=== PATIENT | female | born 1970 | race Caucasian/White ===

== ENCOUNTER 2017-03-26 12:14 | Emergency (ER) | payer OTHER ==
[~2017-03-26] VITALS: Ht 160 cm; Wt 54.1 kg
[~2017-03-26 12:14] MED LIST: METF1000 PO
[2017-03-26 12:25] VITALS: BP 151/98
[2017-03-26 13:00] LABS: BASOPHILS # (AUTO) 0.2 K/uL (0.00-0.22); BASOPHILS % (AUTO) 2.5 % (0.0-2.0); EOSINOPHILS # (AUTO) 0.2 K/uL (0-0.4); EOSINOPHILS % (AUTO) 3.4 % (0.0-4.0); HEMOGLOBIN 13.2 g/dL (12.0-16.0); LYMPHOCYTES # (AUTO) 2.1 K/uL (2.5-16.5); LYMPHOCYTES % (AUTO) 29.5 % (20.5-51.1); MEAN CORPUSCULAR HEMOGLOBIN 28 pg (27-31); MEAN CORPUSCULAR HGB CONC 32 g/dL (33-37); MEAN CORPUSCULAR VOLUME 86 fL (80-94); MONOCYTES # (AUTO) 0.4 K/uL (0.8-1.0); NEUTROPHILS # (AUTO) 4.3 K/uL (1.8-7.7); NEUTROPHILS % (AUTO) 58.6 % (42.2-75.2); PLATELET COUNT (AUTO) 287 K/uL (140-450); RED BLOOD CELL COUNT(AUTO) 4.78 MIL/uL (4.20-5.40); RED CELL DISTRIBUTION WIDTH 11.7 % (11.6-13.7); WHITE BLOOD COUNT (AUTO) 7.2 K/uL (4.8-10.8)
[2017-03-26 13:02] LABS: APPEARANCE,URINE CLEAR (CLEAR); BILIRUBIN,URINE NEGATIVE (NEGATIVE); BLOOD, URINE 1+ (NEGATIVE); COLOR,URINE YELLOW (YELLOW); LEUKOCYTE ESTERASE ,URINE NEGATIVE (NEGATIVE); NITRITE, URINE NEGATIVE (NEGATIVE); PH,URINE 6.5 (5.0-9.0); UGLUCOSE 3+ (NEGATIVE)
[2017-03-26 13:29] LABS: RBC,URINE 0-5 (RARE) /HPF (0-5); WBC,URINE 0-5 (RARE) /HPF (0-5)
[2017-03-26] MEDS ORDERED: ONDANSETRON 4 MG ODT PO ONE (14:15)
[2017-03-26] MEDS ORDERED: MORPHINE SULFATE 5 MG/ML VIAL IM ONE ×2 (14:15→17:25)
[2017-03-26] MEDS ORDERED: INSULIN HUMAN REGULAR 100 UNITS/ML 10 ML VIAL IVP ONE (15:50)
[2017-03-26] MEDS ORDERED: NACL 0.9% 1,000 ML IV ONE (15:50)
[2017-03-26 16:03] LABS: ANION GAP 10.4 (8-16); CARBON DIOXIDE 30.4 mmol/L (21-32); POTASSIUM 3.8 mmol/L (3.5-5.1)
[2017-03-26 16:04] LABS: CREATININE 0.8 mg/dL (0.6-1.3); TOTAL BILIRUBIN 0.4 mg/dL (0.0-1.0)
[2017-03-26 16:05] LABS: ALBUMIN 3.6 g/dL (3.4-5.0)
[2017-03-26] MEDS ORDERED: ONDANSETRON 4 MG/2 ML VIAL ONE (17:45)
[2017-03-26 17:57] VITALS: BP 114/55
== END 2017-03-26 17:57 | disposition home or self-care (01) ==
LOC: MED 12:14
DX: M54.5 Low back pain (principal); R10.9 Unspecified abdominal pain; J45.909 Unspecified asthma, uncomplicated; E11.9 Type 2 diabetes mellitus without complications; Z79.899 Other long term (current) drug therapy
CPT/HCPCS: 36415; 80053; 81001; 82948; 83690; 84703; 85025; 96361; 96372; 96374; 99285; J1815; J2270; J2405; J7030; S0119

== ENCOUNTER 2017-08-15 10:46 | Emergency (ER) | payer OTHER ==
[~2017-08-15] VITALS: Ht 162.6 cm; Wt 51.5 kg
[2017-08-15 10:53] VITALS: BP 161/107
[2017-08-15] MEDS ORDERED: NACL 0.9% 1,000 ML IV SCH (12:44)
[2017-08-15 13:13] LABS: BASOPHILS # (AUTO) 0.4 K/uL (0.00-0.22); BASOPHILS % (AUTO) 4.1 % (0.0-2.0); EOSINOPHILS # (AUTO) 0.4 K/uL (0-0.4); EOSINOPHILS % (AUTO) 4.8 % (0.0-4.0); HEMATOCRIT 52.9 % (36-48); HEMOGLOBIN 17.1 g/dL (12.0-16.0); LYMPHOCYTES # (AUTO) 1.9 K/uL (2.5-16.5); MEAN CORPUSCULAR HEMOGLOBIN 27 pg (27-31); MEAN CORPUSCULAR HGB CONC 32 g/dL (33-37); MEAN CORPUSCULAR VOLUME 82 fL (80-94); MONOCYTES # (AUTO) 0.3 K/uL (0.8-1.0); MONOCYTES % (AUTO) 3.2 % (1.7-9.3); NEUTROPHILS # (AUTO) 5.7 K/uL (1.8-7.7); NEUTROPHILS % (AUTO) 65.9 % (42.2-75.2); PLATELET COUNT (AUTO) 193 K/uL (140-450); RED BLOOD CELL COUNT(AUTO) 6.46 MIL/uL (4.20-5.40); RED CELL DISTRIBUTION WIDTH 12.6 % (11.6-13.7); WHITE BLOOD COUNT (AUTO) 8.7 K/uL (4.8-10.8)
[2017-08-15] MEDS ORDERED: ENALAPRILAT 2.5 MG/2 ML VIAL IVP ONE (13:30)
[2017-08-15 13:52] LABS: ALBUMIN 3.4 g/dL (3.4-5.0); ANION GAP 12.1 (8-16); CARBON DIOXIDE 29.8 mmol/L (21-32); CREATININE 0.7 mg/dL (0.6-1.3); POTASSIUM 3.9 mmol/L (3.5-5.1); TOTAL BILIRUBIN 0.3 mg/dL (0.0-1.0)
--- NOTE | 2017-08-15 14:15 | NUR ---
PT AMBULATED TO RESTROOM WITH STEADY GAIT
--- NOTE | 2017-08-15 14:31 | NUR ---
NOTIFIED OF BS
[2017-08-15 15:15] VITALS: BP 161/105
--- NOTE | 2017-08-15 15:16 | NUR ---
Patient to be transferred to [facility]. Is being transferred due to . Receiving facility has accepting physician and available space. ER physician has signed transfer form. Patient or responsible constitution party has agreed to transfer and signed form. Patient belongings inventoried and will be sent with patient. Copy of nursing notes, lab reports, EKG, Physicians Orders and X-rays to be sent with patient. Report called to at receiving facility. PT STABLE TO TRANSFER IN PRIVATE AUTO REQUESTED BY PT .
== END 2017-08-15 15:16 | disposition short-term general hospital (02) ==
LOC: MED 10:46
DX: M21.371 Foot drop, right foot (principal); E11.65 Type 2 diabetes mellitus with hyperglycemia; J45.909 Unspecified asthma, uncomplicated; E11.9 Type 2 diabetes mellitus without complications
CPT/HCPCS: 36415; 80053; 81025; 82948; 85025; 96361; 96374; 99285; J3490; J7030

== ENCOUNTER 2018-09-18 17:14 | Emergency (ER) | payer OTHER ==
[~2018-09-18] VITALS: Ht 157.5 cm; Wt 51.7 kg
[2018-09-18 17:36] VITALS: BP 142/113
--- NOTE | 2018-09-18 17:56 | NUR ---
PT AMBULATED TO ER BED 10
--- NOTE | 2018-09-18 18:10 | NUR ---
PATIENT REFERRED FROM PCP BLOOD SUGAR READING >600; 20UNITS OF INSULIN GIVEN SQ AT PCP OFFICE. CURRENTLY BS 467MG/DL. DENIES ANY SYMPTOMS OF HYPERGLYCEMIA, DENIES N/V/D, DENIES PAIN. HX DM, HTN. SKIN IS PINK/WARM/DRY; AAOX4 WITH EVEN AND STEADY GAIT; LUNGS CLEAR BL; HR EVEN AND REGULAR; PT DENIES ANY FEVER, CP, SOB, OR COUGH AT THIS TIME; PATIENT POSITIONED FOR COMFORT; HOB ELEVATED; BEDRAILS UP X2; BED DOWN. ER MD MADE AWARE OF PT STATUS.
[2018-09-18] MEDS ORDERED: NACL 0.9% 1,000 ML IV ONE (18:40)
[2018-09-18 19:10] LABS: BILIRUBIN,URINE NEGATIVE (NEGATIVE); BLOOD, URINE TRACE-L (NEGATIVE); COLOR,URINE YELLOW (YELLOW); LEUKOCYTE ESTERASE ,URINE NEGATIVE (NEGATIVE); NITRITE, URINE POSITIVE (NEGATIVE); PH,URINE 6.5 (5.0-9.0); UGLUCOSE 3+ (NEGATIVE)
[2018-09-18 19:12] LABS: BASOPHILS # (AUTO) 0.2 K/uL (0.00-0.22); BASOPHILS % (AUTO) 1.5 % (0.0-2.0); EOSINOPHILS # (AUTO) 0.2 K/uL (0-0.4); EOSINOPHILS % (AUTO) 2.2 % (0.0-4.0); HEMATOCRIT 27.3 % (36-48); HEMOGLOBIN 7.8 g/dL (12.0-16.0); LYMPHOCYTES # (AUTO) 2.4 K/uL (2.5-16.5); LYMPHOCYTES % (AUTO) 20.9 % (20.5-51.1); MEAN CORPUSCULAR HEMOGLOBIN 17 pg (27-31); MEAN CORPUSCULAR HGB CONC 29 g/dL (33-37); MEAN CORPUSCULAR VOLUME 60.2 fL (80-94); MONOCYTES # (AUTO) 0.8 K/uL (0.8-1.0); MONOCYTES % (AUTO) 7.5 % (1.7-9.3); NEUTROPHILS # (AUTO) 7.7 K/uL (1.8-7.7); NEUTROPHILS % (AUTO) 67.9 % (42.2-75.2); PLATELET COUNT (AUTO) 447 K/uL (140-450); RED BLOOD CELL COUNT(AUTO) 4.54 MIL/uL (4.20-5.40); RED CELL DISTRIBUTION WIDTH 17.7 % (11.6-13.7); WHITE BLOOD COUNT (AUTO) 11.3 K/uL (4.8-10.8)
[2018-09-18 19:22] LABS: APPEARANCE,URINE HAZY (CLEAR)
[2018-09-18 19:23] LABS: ANION GAP 12.8 (8-16); CARBON DIOXIDE 26.7 mmol/L (21-32); CREATININE 0.8 mg/dL (0.6-1.3); POTASSIUM 3.5 mmol/L (3.5-5.1); TOTAL BILIRUBIN 0.2 mg/dL (0.0-1.0)
[2018-09-18] MEDS ORDERED: LEVOFLOXACIN 500 MG/D5W PREMIX 100 ML IV ONE (19:55)
[2018-09-18] MEDS ORDERED: INSULIN REGULAR, HUMAN 100 UNIT/ML VIAL IVP ONE (19:55)
[2018-09-18] MEDS ORDERED: KETOROLAC 30 MG/ML VIAL IVP ONE (19:55)
--- NOTE | 2018-09-18 20:19 | NUR ---
LAB AT BEDSIDE TO COLLECT BLOOD CULTURES.
--- NOTE | 2018-09-18 22:05 | NUR ---
Patient discharged with v/s stable. Written and verbal after care instructions given and explained. Patient alert, oriented and verbalized understanding of instructions. Ambulatory with steady gait. All questions addressed prior to discharge. ID band removed. Patient advised to follow up with PMD. Rx of Bactrim DS, Iron, and Motrin given. Patient educated on indication of medication including possible reaction and side effects. Opportunity to ask questions provided and answered.
[2018-09-18 22:11] VITALS: BP 153/92
== END 2018-09-18 22:05 | disposition home or self-care (01) ==
LOC: MED 17:14
DX: E11.65 Type 2 diabetes mellitus with hyperglycemia (principal); N39.0 Urinary tract infection, site not specified; D64.9 Anemia, unspecified; R05 Cough; I10 Essential (primary) hypertension; J45.909 Unspecified asthma, uncomplicated; Z79.84 Long term (current) use of oral hypoglycemic drugs
CPT/HCPCS: 36415; 80053; 81001; 82948; 83540; 84484; 85025; 87040; 87086; 93005; 96361; 96365; 96372; 96375; 99284; J1815; J1885; J1956; 87186

== ENCOUNTER 2019-02-12 17:30 | Observation (INO) | payer OTHER ==
[~2019-02-12] VITALS: Ht 162.6 cm; Wt 52.6 kg
[2019-02-12 17:43] VITALS: BP 180/101
[2019-02-12] MEDS ORDERED: NACL 0.9% 1,000 ML IV SCH (17:52)
--- NOTE | 2019-02-12 18:00 | NUR ---
PT C/O LOW HGB/HCT. SENT HERE BY DR CARLTON. DENIES N/V/D; SKIN IS PALE/WARM/DRY; AAOX4 WITH EVEN AND STEADY GAIT; LUNGS CLEAR BL; HR EVEN WITH TACHYCARDIA; PT DENIES ANY FEVER, CP, SOB, OR COUGH AT THIS TIME; PATIENT STATES PAIN OF 0/10 AT THIS TIME; VSS; PATIENT POSITIONED FOR COMFORT; HOB ELEVATED; BEDRAILS UP X1; BED DOWN. ER MD MADE AWARE OF PT STATUS.
[2019-02-12 18:04] LABS: BASOPHILS # (AUTO) 0.1 K/uL (0.00-0.22); BASOPHILS % (AUTO) 0.7 % (0.0-2.0); EOSINOPHILS # (AUTO) 0.1 K/uL (0-0.4); EOSINOPHILS % (AUTO) 0.5 % (0.0-4.0); HEMATOCRIT 23.9 % (36-48); LYMPHOCYTES # (AUTO) 2.6 K/uL (2.5-16.5); LYMPHOCYTES % (AUTO) 18.3 % (20.5-51.1); MEAN CORPUSCULAR HEMOGLOBIN 17 pg (27-31); MEAN CORPUSCULAR HGB CONC 28 g/dL (33-37); MONOCYTES # (AUTO) 0.8 K/uL (0.8-1.0); MONOCYTES % (AUTO) 5.8 % (1.7-9.3); NEUTROPHILS # (AUTO) 10.5 K/uL (1.8-7.7); NEUTROPHILS % (AUTO) 74.7 % (42.2-75.2); PLATELET COUNT (AUTO) 436 K/uL (140-450); RED BLOOD CELL COUNT(AUTO) 4.05 MIL/uL (4.20-5.40); RED CELL DISTRIBUTION WIDTH 20.4 % (11.6-13.7)
[2019-02-12 18:07] LABS: HEMOGLOBIN 6.7 g/dL (12.0-16.0)
[2019-02-12 18:21] LABS: CARBON DIOXIDE 28.5 mmol/L (21-32); CREATININE 0.7 mg/dL (0.6-1.3); POTASSIUM 3.5 mmol/L (3.5-5.1)
[2019-02-12 18:26] LABS: PROTHROMBIN TIME 9.5 secs (10.8-13.4)
[2019-02-12 18:27] LABS: ALBUMIN 2.8 g/dL (3.4-5.0); TOTAL BILIRUBIN 0.2 mg/dL (0.0-1.0)
[2019-02-12] MEDS ORDERED: guaiFENesin DM 200/20 MG-10 ML 10 ML UDC PO PRN (21:25)
[2019-02-12] MEDS ORDERED: ONDANSETRON 4 MG/2 ML VIAL IVP PRN (21:25)
[2019-02-12] MEDS ORDERED: ACETAMINOPHEN 325 MG TAB PO PRN (21:25)
[2019-02-12] MEDS ORDERED: BISACODYL 10 MG SUPP RC PRN (21:25)
[2019-02-12] MEDS ORDERED: MAGNESIUM OXIDE 400 MG TAB PO PRN (21:25)
[2019-02-12] MEDS ORDERED: diphenhydrAMINE 50 MG/ML VIAL IVP PRN (21:25)
[2019-02-12] MEDS ORDERED: HYDROcodone/APAP 5/325 MG 1 TAB TAB PO PRN ×2 (21:25)
[2019-02-12] MEDS ORDERED: ALUMINUM HYD/MAG/SIMETHICONE 30 ML UDC PO PRN (21:25)
[2019-02-12] MEDS ORDERED: IPRATROPIUM 0.02% 0.5 MG/2.5 ML NEBU INH PRN (21:25)
[2019-02-12] MEDS ORDERED: ACETAMINOPHEN 650 MG SUPP RC PRN (21:25)
[2019-02-12] MEDS ORDERED: POTASSIUM CHLORIDE 40 MEQ, LIDOCAINE 1% 25 MG in NACL 0.9% 250 ML IV PRN (21:25)
[2019-02-12] MEDS ORDERED: SODIUM PHOSPHATE 118 ML ENEM RC PRN (21:25)
[2019-02-12] MEDS ORDERED: MORPHINE SULFATE 2 MG/ML SYR IVP PRN (21:25)
[2019-02-12] MEDS ORDERED: ALBUTEROL 0.083% 2.5 MG/3 ML NEBU INH PRN (21:25)
[2019-02-12] MEDS ORDERED: ZOLPIDEM 5 MG TAB PO PRN (21:25)
[2019-02-12] MEDS ORDERED: DOCUSATE SODIUM 250 MG GELCAP PO PRN (21:25)
[2019-02-12] MEDS ORDERED: POTASSIUM CHLORIDE 10 MEQ TABER PO PRN (21:25)
[2019-02-12] MEDS ORDERED: LORazepam 2 MG/ML VIAL IVP PRN (21:25)
[2019-02-12] MEDS ORDERED: MAG SULF 2000 MG/WATER PREMIX 50 ML IV PRN (21:25)
[2019-02-12 21:29] VITALS: BP 178/99
--- NOTE | 2019-02-12 21:29 | NUR ---
RECEIVED PT FROM ER VIA WHEELCHAIR PT IS PALE AAOX4 AMBULATORY DENIES ANY PAIN OR DISCOMFORT, IV ON RT AC GAUGE # 20 PATENT SKIN INTACT PT ON RT FOOT HAS BIG TOE AMPUTEE PT IS ORIENTED TO THE FLOOR CALL LIGHT WITHIN REACH
--- NOTE | 2019-02-12 22:30 | NUR ---
PT IS EATING WELL GOOD APPETITE NOT DISTRESS NOTED
[2019-02-12] MEDS: cloNIDine 0.1 MG TAB PO PRN (22:52)
[2019-02-13] VITALS: BP 159/97
--- NOTE | 2019-02-13 00:45 | NUR ---
AT 0045 FIRST UNITS OF PRBC STARTED PT ON CLOSE MONITORINE NOT DISTRESS NOTED
--- NOTE | 2019-02-13 02:00 | NUR ---
PT ON BLOOD TRANSFUSION DENIES ANY PAIN , BP WILL BE MONITORING
[2019-02-13 03:30] VITALS: BP 187/110
[2019-02-13] MEDS ORDERED: hydrALAZINE 20 MG/ML VIAL IVP SCH (03:30)
--- NOTE | 2019-02-13 03:30 | NUR ---
DR MATHIAS WAS NOTIFY HIGH BP 187 /110 AND ORDERS TO FOLLOW ON CLOSE MONITORING
[2019-02-13] MEDS ORDERED: hydrALAZINE 20 MG/ML VIAL ONE (03:46)
--- NOTE | 2019-02-13 03:55 | NUR ---
AT 0355 END FIRST UNITS PRBC PT DENIES ANY PAIN OR DISCOMFORT ON CLOSE MONITORING FOR HITGH BP AFTER HYDRALAZINA GIVEN BP 124/76
[2019-02-13 04:00] VITALS: BP 124/76
--- NOTE | 2019-02-13 05:05 | NUR ---
AT 0505 STARTED SECOND UNITS OF PRBC PT RESTING DENIES ANY PAIN OR DISCOMFORT
--- NOTE | 2019-02-13 07:30 | NUR ---
Received bedside report from pm nurse Trudy. Pt resting in bed, verbally responsive, respirations even & nonlabored, no c/o discomfort. Right AC IV intact with ongoing blood transfusion @ 100ml/hr. Call light within reach.
[2019-02-13 07:50] VITALS: BP 160/94
--- NOTE | 2019-02-13 08:41 | NUR ---
PATIENT HAS BEEN SCREENED AND CATEGORIZED LOW NUTRITION RISK. PATIENT WILL BE SEEN WITHIN 7 DAYS OF ADMISSION. 02/19/[address]
--- NOTE | 2019-02-13 10:15 | NUR ---
2nd unit PRBC held d/t elevated BP. Will administer catapress per prn order. Pt resting in bed, denies any discomfort/headache/nausea. Right AC IV intact with NS @ 10ml/hr TKVO. Call light within reach.
[2019-02-13] MEDS: metFORMIN 500 MG TAB PO SCH ×2 (10:27→17:59)
[2019-02-13] MEDS: cloNIDine 0.1 MG TAB PO PRN (10:28)
--- NOTE | 2019-02-13 11:59 | NUR ---
Dr Montaño called and paged. Dr. Montaño called back and informed about persistent elevated BP post Catapress. Orders received and read back to ensure accuracy. Will administer new ordered medications and continue to monitor Bp and changes in condition.
[2019-02-13 12:00] VITALS: BP 188/115
[2019-02-13] MEDS ORDERED: FUROSEMIDE 40 MG/4 ML VIAL IVP SCH (12:06)
[2019-02-13] MEDS: hydrALAZINE 25 MG TAB PO PRN ×2 (12:44→20:13)
--- NOTE | 2019-02-13 14:13 | NUR ---
Dr Montaño was paged in regard to patient's persistent HTN, despite administering newly ordered lasix and hydralazine. Dr. Montaño was informed of the most recent BP. When asked if he wanted to proceed with the third unit of PRBC, Dr. Montaño stated that we were ok to proceed with the transfusion because the patient was asymptomatic to the HTN.
--- NOTE | 2019-02-13 14:42 | NUR ---
PATIENT WAS GIVEN NUTRITION EDUCATION FOR IRON DEFICIENCY ANEMIA. MAL[address]IE [address]
--- NOTE | 2019-02-13 15:15 | NUR ---
1unit PRBC transfusion initiated at this time. Pt resting in bed, aaox4, no c/o discomfort, no signs of distress. RN at bedside for continuos monitoring for 1st 15min of transfusion.
[2019-02-13 15:45] VITALS: BP 160/100
[2019-02-13] MEDS ORDERED: FERR324T11 PO (16:15)
[2019-02-13] MEDS ORDERED: AMLO5TAB PO (16:15)
--- NOTE | 2019-02-13 18:00 | NUR ---
PRBC completed at this time. Pt disconnected from IV lines, right AC IV flushed with 10ml NS. No transfusion reactions noted, pt denies any pain/discomfort, respirations even & nonlabored. Call light within reach. Lab notified of transfusion completion, per tin can laborer: will draw CBC 2hr post-transfusion.
--- NOTE | 2019-02-13 19:19 | NUR ---
Pt endorsed to night FIORDALIZA Perez. Pt was in restroom, and prior to entering the restroom inquired about the time of discharge. Night nurse informed that new blood work has been ordered and must be completed prior to discharge. Pt shows no signs of acute distress at this time ans she was able to ambulate to the restroom with a steady gait/
--- NOTE | 2019-02-13 19:20 | NUR ---
REPORT RECEIVED FROM AM NURSE AT BEDSIDE. PT IN STABLE CONDITION. AAOX4. INTRODUCED SELF TO PT. BOARD UPDATED. NO COMPLAINTS OF PAIN. NO SOB. AFEBRILE. PT IS AMBULATORY. PT RECEIVED 3 UNITS OF BLOOD ALL COMPLETE. D/C ORDERS AFTER H&H DRAWN TODAY@1999. IV SITE R AC 20G SL PATENT AND INTACT. SKIN WARM, DRY, AND INTACT WITH NO OPEN WOUNDS. BED LOCKED IN LOW POSITION. CALL CLEMENS WITHIN REACH. SAFETY PRECAUTION IN PLACE. ALL NEEDS MET AT THIS TIME.
--- NOTE | 2019-02-13 20:13 | NUR ---
HYDRALAZINE GIVEN FOR BP 163/100. HR 108. WILL REASSESS.
[2019-02-13 20:24] LABS: BASOPHILS # (AUTO) 0.1 K/uL (0.00-0.22); EOSINOPHILS # (AUTO) 0.3 K/uL (0-0.4); EOSINOPHILS % (AUTO) 2.2 % (0.0-4.0); HEMOGLOBIN 12.5 g/dL (12.0-16.0); LYMPHOCYTES # (AUTO) 2.6 K/uL (2.5-16.5); MEAN CORPUSCULAR HEMOGLOBIN 21 pg (27-31); MEAN CORPUSCULAR HGB CONC 31 g/dL (33-37); MONOCYTES % (AUTO) 7.8 % (1.7-9.3); NEUTROPHILS # (AUTO) 8.5 K/uL (1.8-7.7); PLATELET COUNT (AUTO) 372 K/uL (140-450); RED BLOOD CELL COUNT(AUTO) 5.88 MIL/uL (4.20-5.40); RED CELL DISTRIBUTION WIDTH 28.4 % (11.6-13.7); WHITE BLOOD COUNT (AUTO) 12.5 K/uL (4.8-10.8)
--- NOTE | 2019-02-13 20:35 | NUR ---
PT ASKED TO CHECK HER BLOOD SUGAR LEVELS. BS 452. CALLED MD. AWAITING CALL BACK.
[2019-02-13] MEDS ORDERED: INSULIN LISPRO 100 UNITS/ML VIAL SUBQ ONE (20:40)
--- NOTE | 2019-02-13 20:40 | NUR ---
CALLED BACK. NEW ORDERS TO GIVE 16 UNITS OF REGULAR INSULIN AND CHECK BS AGAIN IN 1 HOUR. IF UNDER 400 OK TO D/C WILL REASSESS IN 1 HOUR.
--- NOTE | 2019-02-13 20:44 | NUR ---
16 UNITS OF HUMALOG GIVEN FOR BS 452.
[2019-02-13 20:45] LABS: ANION GAP 11.4 (8-16); CARBON DIOXIDE 28.6 mmol/L (21-32); CREATININE 0.8 mg/dL (0.6-1.3)
--- NOTE | 2019-02-13 21:00 | NUR ---
CRITICAL LAB VALUE OF BS 471. ALREADY GIVEN 16 UNITS OF HUMALOG BEFORE CRITICAL VALUE CALLED IN. LAB WAS DRAWN AT 1999.
--- NOTE | 2019-02-13 22:00 | NUR ---
BP 150/97 REASSESS AFTER HYDRALAZINE. BS 323. OK TO SEND HOME PER MD ORDERS.
--- NOTE | 2019-02-13 22:45 | NUR ---
PATIENT RIDE ARRIVED TO PICK HER UP. PT D/C AT THIS TIME. ARM BANDS D/C. IV ROMOVED. CANNULA INTACT. NO WOUNDS. SKIN INTACT. D/C PAPERWORK SIGNED BY PT.
--- NOTE | 2019-02-14 16:24 | NUR ---
CONTACTED PATIENT'S PCP'S OFFICE DR. RACHEL CARLTON AT [phone], PER [facility] THEY DO NOT PROVIDE APPOINTMENT TO THIRD LIBERTARIAN. THE PATIENT NEED TO CALL THE OFFICE. CONTACTED THE PATIENT AT [phone] AND MADE HER AWARE, ABLE TO VERBALIZE UNDERSTANDING.
== END 2019-02-13 22:47 | disposition home or self-care (01) ==
LOC: MED 17:30 → MTU 20:51
PROVIDERS: ADMIT Internal Medicine Pulmonary Disease; ATTEND Internal Medicine Pulmonary Disease
DX: D64.9 Anemia, unspecified (principal); E11.9 Type 2 diabetes mellitus without complications; I10 Essential (primary) hypertension; J45.909 Unspecified asthma, uncomplicated; N92.1 Excessive and frequent menstruation with irregular cycle
CPT/HCPCS: 36415; 36430; 71045; 76830; 80048; 80053; 82948; 85025; 85610; 85730; 86886; 86900; 86901; 86920; 87081; 94760; 96372; 96374; 96375; 99285; G0378; J0360; J1815; J1940; J7030; P9016; Q0092; 96360

== ENCOUNTER 2019-04-14 13:31 | Emergency (ER) | payer OTHER ==
[~2019-04-14] VITALS: Ht 162.6 cm; Wt 53.5 kg
[~2019-04-14 13:31] MED LIST changes: +AMLO5TAB PO; +FERR324T11 PO
[2019-04-14 13:48] VITALS: BP 192/109
[2019-04-14] MEDS ORDERED: NACL 0.9% 1,000 ML IV ONE ×3 (13:50→17:25)
[2019-04-14 14:50] LABS: BASOPHILS # (AUTO) 0.1 K/uL (0.00-0.22); BASOPHILS % (AUTO) 0.8 % (0.0-2.0); EOSINOPHILS # (AUTO) 0.2 K/uL (0-0.4); EOSINOPHILS % (AUTO) 1.2 % (0.0-4.0); HEMATOCRIT 37.8 % (36-48); LYMPHOCYTES # (AUTO) 1.7 K/uL (2.5-16.5); LYMPHOCYTES % (AUTO) 11.7 % (20.5-51.1); MEAN CORPUSCULAR HEMOGLOBIN 25 pg (27-31); MEAN CORPUSCULAR HGB CONC 32 g/dL (33-37); MEAN CORPUSCULAR VOLUME 78.2 fL (80-94); MONOCYTES # (AUTO) 1.3 K/uL (0.8-1.0); MONOCYTES % (AUTO) 8.5 % (1.7-9.3); NEUTROPHILS # (AUTO) 11.6 K/uL (1.8-7.7); NEUTROPHILS % (AUTO) 77.8 % (42.2-75.2); PLATELET COUNT (AUTO) 309 K/uL (140-450); RED BLOOD CELL COUNT(AUTO) 4.83 MIL/uL (4.20-5.40); RED CELL DISTRIBUTION WIDTH 27.1 % (11.6-13.7); WHITE BLOOD COUNT (AUTO) 14.9 K/uL (4.8-10.8)
[2019-04-14 15:00] LABS: ALBUMIN 2.8 g/dL (3.4-5.0); ANION GAP 12.6 (8-16); CARBON DIOXIDE 27.5 mmol/L (21-32); CREATININE 0.8 mg/dL (0.6-1.3); POTASSIUM 4.1 mmol/L (3.5-5.1); TOTAL BILIRUBIN 0.4 mg/dL (0.0-1.0)
[2019-04-14] MEDS ORDERED: ENALAPRILAT 2.5 MG/2 ML VIAL IVP ONE (15:00)
[2019-04-14] MEDS ORDERED: INSULIN REGULAR, HUMAN 100 UNIT/ML VIAL IV ONE (15:15)
[2019-04-14] MEDS ORDERED: KETOROLAC 30 MG/ML VIAL IVP ONE (15:25)
[2019-04-14] MEDS ORDERED: cefTRIAXone 1,000 MG VIAL ONE (15:36)
[2019-04-14 17:58] VITALS: BP 131/79
== END 2019-04-14 17:59 | disposition home or self-care (01) ==
LOC: MED 13:31
DX: L03.115 Cellulitis of right lower limb (principal); J45.909 Unspecified asthma, uncomplicated; I10 Essential (primary) hypertension; E11.9 Type 2 diabetes mellitus without complications; Z79.84 Long term (current) use of oral hypoglycemic drugs; Z79.899 Other long term (current) drug therapy
CPT/HCPCS: 36415; 80053; 85025; 96365; 96375; 99283; J0696; J1815; J1885; J3490; J7030; J7060

== ENCOUNTER 2019-04-18 07:46 | Inpatient (IN) | payer OTHER ==
[~2019-04-18] VITALS: Ht 162.6 cm; Wt 53.5 kg
[2019-04-18 07:55] VITALS: BP 178/105
--- NOTE | 2019-04-18 08:06 | NUR ---
48 YR OLD F BIB SELF AMBULATE TO BED 9 W/ C/O RIGHT KNOW REDNESS SWOLLEN AND OPEN BLISTERS WITH DRAINAGE X5 DAYS, STATED WAS HERE TREATED WITH PREDNISONE AND KEFLEX, GETTING WORSE. HX OF DM, BS 471 MG/DL NOW.
[2019-04-18] MEDS ORDERED: PIPERACILLIN/TAZOBACTAM 3.375 GM in DEXTROSE 5% 50 ML IV ONE (08:20)
[2019-04-18] MEDS ORDERED: VANCOMYCIN 1,000 MG in DEXTROSE 5% 250 ML IV ONE (08:20)
[2019-04-18] MEDS ORDERED: NACL 0.9% 1,500 ML IV ONE (08:20)
[2019-04-18] MEDS ORDERED: INSULIN REGULAR, HUMAN 100 UNIT/ML VIAL SUBQ ONE (08:35)
[2019-04-18 08:48] LABS: HEMATOCRIT 36.2 % (36-48); HEMOGLOBIN 11.4 g/dL (12.0-16.0); MEAN CORPUSCULAR HEMOGLOBIN 25 pg (27-31); MEAN CORPUSCULAR HGB CONC 32 g/dL (33-37); MEAN CORPUSCULAR VOLUME 78.9 fL (80-94); PLATELET COUNT (AUTO) 387 K/uL (140-450); RED BLOOD CELL COUNT(AUTO) 4.58 MIL/uL (4.20-5.40); RED CELL DISTRIBUTION WIDTH 26.1 % (11.6-13.7); WHITE BLOOD COUNT (AUTO) 16.3 K/uL (4.8-10.8)
[2019-04-18] MEDS ORDERED: PIPERACILLIN/TAZOBACTAM 3.375 GM VIAL IV ONE (08:54)
[2019-04-18] MEDS ORDERED: VANCOMYCIN 1,000 MG VIAL ONE (08:55)
[2019-04-18 09:22] LABS: LYMPHOCYTES % (MANUAL) 7 % (20-46); MONOCYTES % (MANUAL) 2 % (5-12)
[2019-04-18 10:00] LABS: POTASSIUM 4.7 mmol/L (3.5-5.1)
[2019-04-18 10:01] LABS: CARBON DIOXIDE 24.7 mmol/L (21-32)
[2019-04-18 10:01] LABS: BILIRUBIN,URINE NEGATIVE (NEGATIVE); BLOOD, URINE 1+ (NEGATIVE); COLOR,URINE YELLOW (YELLOW); LEUKOCYTE ESTERASE ,URINE NEGATIVE (NEGATIVE); NITRITE, URINE NEGATIVE (NEGATIVE); UGLUCOSE 3+ (NEGATIVE)
[2019-04-18 10:04] LABS: CREATININE 0.8 mg/dL (0.6-1.3); TOTAL BILIRUBIN 0.4 mg/dL (0.0-1.0)
[2019-04-18 10:05] LABS: ALBUMIN 2.6 g/dL (3.4-5.0)
[2019-04-18 10:07] LABS: APPEARANCE,URINE SLIGHTLY HAZY (CLEAR)
[2019-04-18 10:08] LABS: RBC,URINE 0-5 /HPF (0-5); WBC,URINE 0-5 /HPF (0-5); YEAST,URINE Few /HPF (None Seen)
[2019-04-18] MEDS ORDERED: ZOLPIDEM 5 MG TAB PO PRN (10:25)
[2019-04-18] MEDS ORDERED: diphenhydrAMINE 50 MG/ML VIAL IVP PRN (10:25)
[2019-04-18] MEDS ORDERED: ONDANSETRON 4 MG/2 ML VIAL IVP PRN (10:25)
[2019-04-18] MEDS ORDERED: POTASSIUM CHLORIDE 10 MEQ TABER PO PRN (10:25)
[2019-04-18] MEDS ORDERED: DOCUSATE SODIUM 250 MG GELCAP PO PRN (10:25)
[2019-04-18] MEDS ORDERED: DEXTROSE 50% 50 ML SYR IVP PRN (10:25)
[2019-04-18] MEDS ORDERED: LORazepam 2 MG/ML VIAL IVP PRN (10:25)
[2019-04-18] MEDS ORDERED: MAG SULF 2000 MG/WATER PREMIX 50 ML IV PRN (10:25)
[2019-04-18] MEDS ORDERED: IPRATROPIUM 0.02% 0.5 MG/2.5 ML NEBU INH PRN (10:25)
[2019-04-18] MEDS ORDERED: ACETAMINOPHEN 650 MG SUPP RC PRN (10:25)
[2019-04-18] MEDS ORDERED: ALUMINUM HYD/MAG/SIMETHICONE 30 ML UDC PO PRN (10:25)
[2019-04-18] MEDS ORDERED: guaiFENesin DM 200/20 MG-10 ML 10 ML UDC PO PRN (10:25)
[2019-04-18] MEDS ORDERED: HYDROcodone/APAP 5/325 MG 1 TAB TAB PO PRN ×2 (10:25)
[2019-04-18] MEDS ORDERED: MORPHINE SULFATE 2 MG/ML SYR IVP PRN (10:25)
[2019-04-18] MEDS ORDERED: hydrALAZINE 20 MG/ML VIAL IVP ONE (10:25)
[2019-04-18] MEDS ORDERED: MAGNESIUM OXIDE 400 MG TAB PO PRN (10:25)
[2019-04-18] MEDS ORDERED: SODIUM PHOSPHATE 118 ML ENEM RC PRN (10:25)
[2019-04-18] MEDS ORDERED: cloNIDine 0.1 MG TAB PO PRN (10:25)
[2019-04-18] MEDS ORDERED: ALBUTEROL 0.083% 2.5 MG/3 ML NEBU INH PRN (10:25)
[2019-04-18] MEDS ORDERED: ACETAMINOPHEN 325 MG TAB PO PRN (10:25)
[2019-04-18] MEDS ORDERED: BISACODYL 10 MG SUPP RC PRN (10:25)
[2019-04-18] MEDS ORDERED: INSULIN LANTUS 100 UNITS/ML 10 ML VIAL SUBQ SCH (11:30)
[2019-04-18] MEDS: BLOOD GLUCOSE MONITORING 1 DEV DEV FS SCH ×3 (11:30→20:27)
--- NOTE | 2019-04-18 11:30 | NUR ---
Patient will be admitted to care of Dr Cagle. Admited to M/S room 106a. Belongings list completed. Report to FIORDALIZA Jimenez
[2019-04-18 14:46] VITALS: BP 130/80
[2019-04-18] MEDS: CLINDAMYCIN 600 MG in DEXTROSE 5% 50 ML IV SCH ×2 (15:58→20:33)
[2019-04-18] MEDS: INSULIN LISPRO SLIDING SCALE 100 UNITS/ML VIAL SUBQ PRN ×2 (17:36→20:29)
--- NOTE | 2019-04-18 19:00 | NUR ---
RECEIVED PATIENT FROM AM SHIFT NURSEDONNIE FROM REGISTRY. AWAKE, ALERT OR, X 4., BED REST, UNSTEADY GAIT WITH STANDBY ASSIST PT WITH RIGHT LEG CELLULITIS WITH IVF ON RIGHT AC G 20, PATENT AND INTACT, SALINE LOCK. PHOTO NOT TAKEN YET WILL TAKE IT LATER. P PLACED PT IN COMFORTABLE POSITION. FALL RISK PROTOCOL IN PLACE. CALL LIGHT WITHIN REACH
[2019-04-18 20:00] VITALS: BP 122/63
[2019-04-18] MEDS: metFORMIN 500 MG TAB PO SCH (20:33)
--- NOTE | 2019-04-18 22:07 | NUR ---
PHOTO TAKEN ON RIGHT LEG,PT TOLERATED PROCEDURE WELL. ATTACHED TO CHART
--- NOTE | 2019-04-18 22:19 | NUR ---
PT EATING, CONSISTENT CCHO DIET, TOLERATED FOOD WELL. NO COMPLAINTS AT THIS TIME. WILL CONTINUE TO MONITOR
--- NOTE | 2019-04-19 01:24 | NUR ---
CHECKED ON PT, SLEEPING NO COMPLAINTS AT THIS TIME. WILL CONTINUE TO MONITOR
--- NOTE | 2019-04-19 02:00 | NUR ---
PT SLEEPING COMFORTABLY NO COMPLAINTS AT THIS TIME.
[2019-04-19 04:00] VITALS: BP 126/65
[2019-04-19] MEDS: CLINDAMYCIN 600 MG in DEXTROSE 5% 50 ML IV SCH ×3 (05:00→21:13)
[2019-04-19] MEDS: BLOOD GLUCOSE MONITORING 1 DEV DEV FS SCH ×4 (05:46→21:12)
[2019-04-19] MEDS: INSULIN LISPRO SLIDING SCALE 100 UNITS/ML VIAL SUBQ PRN ×4 (05:52→21:38)
--- NOTE | 2019-04-19 07:04 | NUR ---
AWAKE, ALERT ORIENTED X 4., AMBULATORY W/ STANDBY ASSIST. PT IN STABLE CONDITION AT THIS TIME. NO COMPLAINTS OF PAIN
--- NOTE | 2019-04-19 07:10 | NUR ---
RECEIVED PT FROM LEGAL RECORDS MANAGER NURSE, JANNET, PT IS A2WAKE AND SEATED ON THE BED WITH SIDE RAILS UP AND CALL LIGHT WITHIN REACH, IV LINE ON THE RT AC G. 20 ON SALINE LOCK, PT HAS A RT KNEE WOUND AND A RT BIG TOE AMPUTATION, PT DENIES PAIN AND NO SIGN OF DISTRESS NOTED. WILL CONTINUE TO MONITOR PT.
--- NOTE | 2019-04-19 07:15 | NUR ---
CLEOCIN HAS BEEN GIVEN BY PREVIOUS SHIFT BUT WAS NOT ACKNOWLEDGED IN THE EMAR PROFILE.
--- NOTE | 2019-04-19 08:21 | NUR ---
PATIENT HAS BEEN SCREENED AND CATEGORIZED MODERATE NUTRITION RISK. PATIENT WILL BE SEEN WITHIN 3-5 DAYS OF ADMISSION. 04/21/19 04/23/[address]
[2019-04-19] MEDS: metFORMIN 500 MG TAB PO SCH ×2 (08:31→21:13)
[2019-04-19] MEDS: amLODIPine 5 MG TAB PO SCH (08:33)
--- NOTE | 2019-04-19 08:33 | NUR ---
PT IS AWAKE AND PARAMETER CHECKED, SUBQ. AND ORAL MEDICATIONS WERE GIVEN AND TOLERATED IT. WILL MONITOR PT.
[2019-04-19] MEDS ORDERED: INSULIN LANTUS 100 UNITS/ML 10 ML VIAL SUBQ SCH (09:00)
--- NOTE | 2019-04-19 12:20 | NUR ---
BLOOD GLUCOSE CHECK DONE AND RESULT IS 285, 6 UNITS INSULIN WAS GIVEN TO PT NOW IN THE LEFT UA AND WILL MONITOR PT.
--- NOTE | 2019-04-19 12:35 | NUR ---
PT IS AWAKE AND IV MEDIATION WAS GIVEN VIA PIGGYBACK. WILL MONITOR PT.
[2019-04-19 16:00] VITALS: BP 145/94
--- NOTE | 2019-04-19 16:25 | NUR ---
BLOOD GLUCOSE CHECK DONE AND RESULT IS 277. WILL GIVE INSULIN COVERAGE.
--- NOTE | 2019-04-19 16:34 | NUR ---
ISULIN 6 UNITS WAS GIVEN TO PT NOW AT THE ABDOMEN. WILL MONITOR PT.
--- NOTE | 2019-04-19 18:15 | NUR ---
PT IS CALM NOW SITTER ON BEDSIDE. Addendum: 04/19/19 at 1926 by Ольга Castle RN ABOVE NOTE IS NOT INTENDED FOR THE PT.
--- NOTE | 2019-04-19 18:20 | NUR ---
PT IS CALM AND TALKING TO HER DAUGHTER NOW.
--- NOTE | 2019-04-19 19:20 | NUR ---
ENDORSED PT TO IRON LAUNDER OPERATOR NURSEJANNET FOR CONTINUITY OF CARE.
--- NOTE | 2019-04-19 19:21 | NUR ---
RECEIVED PATIENT FROM AM SHIFT NURSE AWAKE, ALERT OR, X 4, BED REST, UNSTEADY GAIT WITH STANDBY ASSIST PT WITH RIGHT LEG CELLULITIS WITH IVF ON RIGHT AC G 20, PATENT AND INTACT, SALINE LOCK. PLACED PT IN COMFORTABLE POSITION. FALL RISK PROTOCOL IN PLACE. CALL LIGHT WITHIN REACH
--- NOTE | 2019-04-19 21:30 | NUR ---
PT SNACKING ON CONSISTENT CCHO DIET, TOLERATED FOOD WELL. NO COMPLAINTS AT THIS TIME. WILL CONTINUE TO MONITOR
[2019-04-20] VITALS: BP 135/81
--- NOTE | 2019-04-20 01:40 | NUR ---
CHECKED ON PT, SLEEPING NO COMPLAINTS AT THIS TIME. WILL CONTINUE TO MONITOR
--- NOTE | 2019-04-20 03:15 | NUR ---
PT SLEEPING COMFORTABLY. NO COMPLAINTS AT THIS TIME.
[2019-04-20] MEDS: CLINDAMYCIN 600 MG in DEXTROSE 5% 50 ML IV SCH ×2 (05:14→12:35)
[2019-04-20] MEDS: BLOOD GLUCOSE MONITORING 1 DEV DEV FS SCH ×2 (06:32→11:39)
[2019-04-20] MEDS: INSULIN LISPRO SLIDING SCALE 100 UNITS/ML VIAL SUBQ PRN (06:37)
--- NOTE | 2019-04-20 06:45 | NUR ---
PT STILL ASLEEP BUT AROUSABLE BY VERBAL STIMULI, AMBULATORY W/ STANDBY ASSIST. PT STABLE AT THIS TIME. WILL ENDORSE TO NEXT SHIFT.
[2019-04-20 07:03] LABS: ANION GAP 11.9 (8-16); CARBON DIOXIDE 28.9 mmol/L (21-32); CREATININE 0.7 mg/dL (0.6-1.3); POTASSIUM 3.8 mmol/L (3.5-5.1)
[2019-04-20 07:04] LABS: BASOPHILS # (AUTO) 0.2 K/uL (0.00-0.22); BASOPHILS % (AUTO) 1.5 % (0.0-2.0); EOSINOPHILS # (AUTO) 0.3 K/uL (0-0.4); EOSINOPHILS % (AUTO) 2.7 % (0.0-4.0); HEMATOCRIT 31.5 % (36-48); HEMOGLOBIN 10.1 g/dL (12.0-16.0); LYMPHOCYTES # (AUTO) 2.8 K/uL (2.5-16.5); LYMPHOCYTES % (AUTO) 24.6 % (20.5-51.1); MEAN CORPUSCULAR HEMOGLOBIN 25 pg (27-31); MEAN CORPUSCULAR HGB CONC 32 g/dL (33-37); MEAN CORPUSCULAR VOLUME 77.5 fL (80-94); MONOCYTES # (AUTO) 0.9 K/uL (0.8-1.0); MONOCYTES % (AUTO) 7.9 % (1.7-9.3); NEUTROPHILS # (AUTO) 7.2 K/uL (1.8-7.7); NEUTROPHILS % (AUTO) 63.3 % (42.2-75.2); PLATELET COUNT (AUTO) 398 K/uL (140-450); RED BLOOD CELL COUNT(AUTO) 4.06 MIL/uL (4.20-5.40); WHITE BLOOD COUNT (AUTO) 11.4 K/uL (4.8-10.8)
--- NOTE | 2019-04-20 07:27 | NUR ---
RECEIVED ENDORSEMENT FROM NAME PLATE STAMPER NURSE. PATIENT IS AAO4, IRANIAN SPEAKING. RESPIRATIONS ARE EVEN AND UNLABORED ON ROOM AIR. PATIENT DENIES ANY PAIN AT THIS TIME. RIGHT AC 20G IV INTACT AND SL. PLAN OF CARE WAS REVIEWED WITH PATIENT, PATIENT VERBALIZED UNDERSTANDING. SAFETY MEASURES IN PLACE, CALL LIGHT WITHIN REACH.
[2019-04-20 08:00] VITALS: BP 161/90
[2019-04-20] MEDS ORDERED: INSULIN LANTUS 100 UNITS/ML 10 ML VIAL SUBQ SCH (09:00)
[2019-04-20] MEDS: metFORMIN 500 MG TAB PO SCH (09:11)
[2019-04-20] MEDS: amLODIPine 5 MG TAB PO SCH (09:12)
--- NOTE | 2019-04-20 09:13 | NUR ---
ADMINISTERED SCHEDULED MEDICATIONS. PATIENT TOLERATED WELL. NO OTHER NEED Addendum: 04/20/19 at 1356 by Sherine Vega RN AT THIS TIME.
[2019-04-20] MEDS ORDERED: CLIN300C2 PO (09:29)
[2019-04-20] MEDS ORDERED: INSU100S22 SUBQ (09:29)
--- NOTE | 2019-04-20 11:15 | NUR ---
PATIENT SLEEPING, VISIBLE RISE AND FALL OF CHEST. NO OTHER NEEDS AT THIS TIME.
--- NOTE | 2019-04-20 13:57 | NUR ---
DISCHARGE INSTRUCTIONS PROVIDED. ALL QUESTIONS AND CONCERNS ADDRESSED. DISCHARGE PRESCRIPTIONS GIVEN. IV WAS REMOVED, CANNULA INTACT, WITH MINIMAL BLEEDING. PATIENT TO BE DISCHARGED HOME. PATIENT WAITING FOR TO PICK HER UP.
--- NOTE | 2019-04-20 15:25 | NUR ---
PATIENT WHEELED OFF UNIT. ID BAND WAS REMOVED. ALL BELONGINGS LEFT WITH PATIENT. PATIENT IS STABLE AT THIS TIME.
--- NOTE | 2019-04-25 15:06 | NUR ---
PER JOSE AT DR CARLTON'S OFFICE, SUPPOSEDLY PATIENT HAS AN APPOINTMENT FOR TODAY BUT PATIENT DID NOT MAKE IT AND WAS RESCHEDULE FOR TUESDAY.
== END 2019-04-20 15:15 | disposition home or self-care (01) | DRG 383 ==
LOC: MED 07:46 → MTU 10:43
PROVIDERS: ADMIT Internal Medicine Pulmonary Disease; ATTEND Internal Medicine Pulmonary Disease
DX: L03.115 Cellulitis of right lower limb (principal); E44.0 Moderate protein-calorie malnutrition; E11.65 Type 2 diabetes mellitus with hyperglycemia; E87.1 Hypo-osmolality and hyponatremia; I10 Essential (primary) hypertension; J45.909 Unspecified asthma, uncomplicated; E86.0 Dehydration; Z68.20 Body mass index [BMI] 20.0-20.9, adult; Z91.19 Patient's noncompliance with other medical treatment and regimen
CPT/HCPCS: 36415; 80048; 80053; 81001; 82948; 83036; 83605; 85025; 87040; 87086; 96365; 96366; 96367; 96372; 96375; 99285; J0360; J1815; J2543; J3370; J3490; J7030; J7060

== ENCOUNTER 2019-04-30 20:04 | Emergency (ER) | payer OTHER ==
[~2019-04-30] VITALS: Ht 162.6 cm; Wt 53.1 kg
[~2019-04-30 20:04] MED LIST changes: +CLIN300C2 PO; +INSU100S22 SUBQ
[2019-04-30 20:50] VITALS: BP 150/94
--- NOTE | 2019-04-30 20:55 | NUR ---
PT AMBULATED TO LOBBY.
--- NOTE | 2019-04-30 21:32 | NUR ---
PT AMBULATED TO ER BED 10
--- NOTE | 2019-04-30 21:40 | NUR ---
48/F PRESENTED TO ED WITH C/O RIGHT KNEE CELLULITIS REFFERAL FROM PCP, SEEN ON THIS DAY. EDEMA, REDNESS, DRAINAGE TO RIGHT KNEE X2 WEEKS. SKIN PEELING IN SURROUNDING AREA. PT STATES FEVER AT HOME. AFEBRILE AT THIS TIME. HR 125. DRAINAGE NOTED. PITTING EDEMA +3 TO RIGHT LOWER EXTREMITY. CAP REFILL LESS THAN 3 SECONDS. EVEN UNLABORED BREATHING NOTED. NO SIGNS OF DISTRESS. PAIN 8/10. FAMILY AT BEDSIDE. WILL CONTINUE TO MONITOR. HX: DM, HTN, RIGHT FIRST TOE AMPUTATION
--- NOTE | 2019-04-30 22:04 | NUR ---
DR. RESENDIZ BEDSIDE EVALUATING PT
[2019-04-30] MEDS ORDERED: NACL 0.9% 1,000 ML IV ONE (22:06)
[2019-04-30] MEDS ORDERED: KETOROLAC 30 MG/ML VIAL IVP ONE (22:10)
[2019-04-30] MEDS ORDERED: LIDOCAINE/EPI 1% 1:100000 20 ML VIAL INJ ONE (22:20)
[2019-04-30 22:55] LABS: BASOPHILS # (AUTO) 0.1 K/uL (0.00-0.22); BASOPHILS % (AUTO) 1.1 % (0.0-2.0); EOSINOPHILS # (AUTO) 0.4 K/uL (0-0.4); EOSINOPHILS % (AUTO) 4.6 % (0.0-4.0); HEMATOCRIT 32.2 % (36-48); HEMOGLOBIN 10.4 g/dL (12.0-16.0); LYMPHOCYTES # (AUTO) 2.6 K/uL (2.5-16.5); LYMPHOCYTES % (AUTO) 29.2 % (20.5-51.1); MEAN CORPUSCULAR HEMOGLOBIN 25 pg (27-31); MEAN CORPUSCULAR HGB CONC 32 g/dL (33-37); MEAN CORPUSCULAR VOLUME 78.7 fL (80-94); MONOCYTES # (AUTO) 0.5 K/uL (0.8-1.0); MONOCYTES % (AUTO) 5.9 % (1.7-9.3); NEUTROPHILS # (AUTO) 5.4 K/uL (1.8-7.7); NEUTROPHILS % (AUTO) 59.2 % (42.2-75.2); PLATELET COUNT (AUTO) 479 K/uL (140-450); RED BLOOD CELL COUNT(AUTO) 4.09 MIL/uL (4.20-5.40); WHITE BLOOD COUNT (AUTO) 9.1 K/uL (4.8-10.8)
[2019-04-30 23:24] LABS: ANION GAP 9.4 (8-16); CARBON DIOXIDE 30.4 mmol/L (21-32); CREATININE 0.7 mg/dL (0.6-1.3); POTASSIUM 3.8 mmol/L (3.5-5.1)
[2019-04-30 23:34] LABS: PROTHROMBIN TIME 9.8 secs (10.8-13.4)
[2019-04-30 23:38] LABS: ALBUMIN 2.4 g/dL (3.4-5.0); TOTAL BILIRUBIN 0.2 mg/dL (0.0-1.0)
[2019-04-30 23:53] LABS: RED CELL DISTRIBUTION WIDTH 22.6 % (11.6-13.7)
[2019-05-01 00:12] LABS: APPEARANCE,URINE CLOUDY (CLEAR); BILIRUBIN,URINE NEGATIVE (NEGATIVE); BLOOD, URINE TRACE-I (NEGATIVE); COLOR,URINE YELLOW (YELLOW); LEUKOCYTE ESTERASE ,URINE NEGATIVE (NEGATIVE); NITRITE, URINE NEGATIVE (NEGATIVE); UGLUCOSE 3+ (NEGATIVE)
[2019-05-01 00:55] VITALS: BP 185/97
--- NOTE | 2019-05-01 00:55 | NUR ---
DISCHARGE PAPERS GIVEN TO PT. PT STATES 2/10 TOLLERABLE PAIN. VSS. RX OF KEFLEX GIVEN. SIDE EFFECTS EXPLAINED. INSTRUCTED TO F/U WITH PCP AND WHEN TO RETURN TO ER. PT VERBALLIZED UNDERSTANDING OF DC INSTRUCTIONS. ALL QUESTIONS ANSWERED.
[2019-05-01 00:59] LABS: WBC,URINE TOO MANY TO COUNT /HPF (0-5)
== END 2019-05-01 00:55 | disposition home or self-care (01) ==
LOC: MED 20:04
DX: L03.115 Cellulitis of right lower limb (principal); E11.9 Type 2 diabetes mellitus without complications; I10 Essential (primary) hypertension; Z89.429 Acquired absence of other toe(s), unspecified side; Z79.4 Long term (current) use of insulin; Z79.899 Other long term (current) drug therapy
CPT/HCPCS: 10060; 36415; 80053; 81001; 83605; 85025; 85610; 87040; 87086; 96374; 99283; J1885; J2001; J7030

== ENCOUNTER 2019-05-03 16:22 | Emergency (ER) | payer OTHER ==
[~2019-05-03] VITALS: Ht 162.6 cm; Wt 53.5 kg
[2019-05-03 16:48] VITALS: BP 141/87
--- NOTE | 2019-05-03 16:50 | NUR ---
48 Y/O F PRESENTS TO ER FOR FOLLOW UP FOR I&D IRRIGATION TO RIGHT KNEE THAT WAS PERFORMED ON 04/30/19. PT PAIN LEVEL 8/10, SHARP, THROBBING AND RADIATES TO TOES. NO BLEEDING OR DRAINAGE NOTED. ALLERGIES: NKA. MED HX: DM AND HTN. PA MADE AWARE OF PT STATUS.
--- NOTE | 2019-05-03 17:54 | NUR ---
PA EVALUATING PT
[2019-05-03] MEDS ORDERED: BACITRACIN OINT 500 UNITS/GM PKT TP ONE (18:10)
[2019-05-03] MEDS ORDERED: HYDROcodone/APAP 5/325 MG 1 TAB TAB PO ONE (18:10)
--- NOTE | 2019-05-03 18:37 | NUR ---
PATIENT MOVED TO BED 11 AT THIS TIME.
--- NOTE | 2019-05-03 18:40 | NUR ---
APPLIED BASATRACIN AND BANDAID TO RIGHT LOWER KNEE WITHOUT ANY ISSUES
--- NOTE | 2019-05-03 18:40 | NUR ---
PT TAKEN TO US VIA W/C.
--- NOTE | 2019-05-03 20:20 | NUR ---
PT SITTING UP IN BED, PAIN LEVEL 0/10 AT THIS TIME, WAITING FOR D/C
[2019-05-03 20:28] VITALS: BP 141/87
--- NOTE | 2019-05-03 20:29 | NUR ---
Patient discharged with v/s stable. Written and verbal after care instructions given and explained. Patient alert, oriented and verbalized understanding of instructions. Ambulatory with steady gait. All questions addressed prior to discharge. ID band removed. Patient advised to follow up with PMD. Rx of NORCO WAS GIVEN given. Patient educated on indication of medication including possible reaction and side effects. Opportunity to ask questions provided and answered.
== END 2019-05-03 20:29 | disposition home or self-care (01) ==
LOC: MED 16:22
DX: Z48.01 Encounter for change or removal of surgical wound dressing (principal); E11.9 Type 2 diabetes mellitus without complications; Z79.2 Long term (current) use of antibiotics; I10 Essential (primary) hypertension; Z79.4 Long term (current) use of insulin; Z79.899 Other long term (current) drug therapy
CPT/HCPCS: 93971; 99284; Q0092

== ENCOUNTER 2019-09-22 17:50 | Emergency (ER) | payer OTHER ==
[~2019-09-22] VITALS: Ht 162.6 cm; Wt 53.5 kg
[2019-09-22 18:13] VITALS: BP 200/118
[2019-09-22] MEDS: hydrALAZINE 20 MG/ML VIAL IVP ONE (18:34)
[2019-09-22] MEDS: NACL 0.9% 500 ML IV ONE (18:35)
[2019-09-22] MEDS: MORPHINE SULFATE 2 MG/ML SYR IVP ONE (18:42)
[2019-09-22 19:15] LABS: BASOPHILS # (AUTO) 0.1 K/uL (0.00-0.22); BASOPHILS % (AUTO) 1.2 % (0.0-2.0); EOSINOPHILS # (AUTO) 0.2 K/uL (0-0.4); EOSINOPHILS % (AUTO) 2.2 % (0.0-4.0); HEMATOCRIT 30.7 % (36-48); HEMOGLOBIN 9.4 g/dL (12.0-16.0); LYMPHOCYTES # (AUTO) 2.6 K/uL (2.5-16.5); LYMPHOCYTES % (AUTO) 25.9 % (20.5-51.1); MEAN CORPUSCULAR HEMOGLOBIN 21 pg (27-31); MEAN CORPUSCULAR HGB CONC 31 g/dL (33-37); MEAN CORPUSCULAR VOLUME 68.3 fL (80-94); MONOCYTES # (AUTO) 0.5 K/uL (0.8-1.0); MONOCYTES % (AUTO) 5.5 % (1.7-9.3); NEUTROPHILS # (AUTO) 6.4 K/uL (1.8-7.7); NEUTROPHILS % (AUTO) 65.2 % (42.2-75.2); PLATELET COUNT (AUTO) 369 K/uL (140-450); RED BLOOD CELL COUNT(AUTO) 4.49 MIL/uL (4.20-5.40); RED CELL DISTRIBUTION WIDTH 15.9 % (11.6-13.7); WHITE BLOOD COUNT (AUTO) 9.9 K/uL (4.8-10.8)
[2019-09-22 19:24] LABS: ACETONE, SERUM NEGATIVE (NEGATIVE)
[2019-09-22 19:25] LABS: ANION GAP 13.7 (8-16); CARBON DIOXIDE 26.9 mmol/L (21-32); CHLORIDE 93 mmol/L (98-107); CREATININE 0.9 mg/dL (0.6-1.3); GFR ARICAN-AMERICAN 86 mL/min (>90); GLUCOSE 385 mg/dL (74-106); POTASSIUM 3.6 mmol/L (3.5-5.1); SODIUM SERUM 130 mmol/L (136-145); UREA NITROGEN, BLOOD 19 mg/dL (7-18)
[2019-09-22 19:31] LABS: ASPARTATE AMINOTRANSFERASE 17 U/L (15-37); TOTAL BILIRUBIN 0.3 mg/dL (0.0-1.0)
[2019-09-22] MEDS: NACL 0.9% 1,000 ML IV ONE (21:36)
[2019-09-22] MEDS: INSULIN REGULAR, HUMAN 100 UNIT/ML VIAL IV ONE (22:13)
[2019-09-22 23:39] VITALS: BP 139/89
== END 2019-09-22 23:05 | disposition home or self-care (01) ==
LOC: MED 17:50
DX: E11.65 Type 2 diabetes mellitus with hyperglycemia (principal); I10 Essential (primary) hypertension; M54.5 Low back pain; G89.29 Other chronic pain; Z76.0 Encounter for issue of repeat prescription; Z79.4 Long term (current) use of insulin; Z79.899 Other long term (current) drug therapy
CPT/HCPCS: 36415; 80053; 82009; 82948; 85025; 96361; 96374; 96375; 99284; J0360; J1815; J2270; J7030

== ENCOUNTER 2020-02-05 19:56 | Emergency (ER) | payer OTHER ==
[~2020-02-05] VITALS: Ht 162.6 cm; Wt 53.5 kg
[2020-02-05 20:14] VITALS: BP 182/112
[2020-02-05 21:00] LABS: BASOPHILS # (AUTO) 0.1 K/uL (0.00-0.22); BASOPHILS % (AUTO) 0.9 % (0.0-2.0); EOSINOPHILS # (AUTO) 0.2 K/uL (0-0.4); EOSINOPHILS % (AUTO) 1.2 % (0.0-4.0); HEMATOCRIT 28.3 % (36-48); HEMOGLOBIN 8.3 g/dL (12.0-16.0); LYMPHOCYTES # (AUTO) 1.9 K/uL (2.5-16.5); LYMPHOCYTES % (AUTO) 14.6 % (20.5-51.1); MEAN CORPUSCULAR HEMOGLOBIN 19 pg (27-31); MEAN CORPUSCULAR HGB CONC 29 g/dL (33-37); MEAN CORPUSCULAR VOLUME 65.7 fL (80-94); MONOCYTES % (AUTO) 7.9 % (1.7-9.3); NEUTROPHILS # (AUTO) 9.8 K/uL (1.8-7.7); NEUTROPHILS % (AUTO) 75.4 % (42.2-75.2); PLATELET COUNT (AUTO) 568 K/uL (140-450); RED BLOOD CELL COUNT(AUTO) 4.31 MIL/uL (4.20-5.40); RED CELL DISTRIBUTION WIDTH 17.8 % (11.6-13.7)
[2020-02-05 21:14] LABS: ALBUMIN 1.9 g/dL (3.4-5.0); ANION GAP 11.1 (8-16); CARBON DIOXIDE 27.9 mmol/L (21-32); CREATININE 0.7 mg/dL (0.6-1.3); TOTAL BILIRUBIN 0.1 mg/dL (0.0-1.0)
== END 2020-02-05 23:29 | disposition home or self-care (01) ==
LOC: MED 19:56
DX: T25.322A Burn of third degree of left foot, initial encounter (principal); L03.116 Cellulitis of left lower limb; E11.9 Type 2 diabetes mellitus without complications; Z89.431 Acquired absence of right foot; X10.1XXA Contact with hot food, initial encounter; Y93.89 Activity, other specified; Y92.89 Other specified places as the place of occurrence of the external cause; Y99.8 Other external cause status
CPT/HCPCS: 36415; 73620; 80053; 82948; 85025; 99284